=== PATIENT | male | born 1990 | race Hispanic/Latino ===

== ENCOUNTER 2019-10-08 12:05 | Emergency (ER) | payer OTHER ==
[~2019-10-08] VITALS: Ht 188 cm; Wt 158.8 kg
[2019-10-08] MEDS ORDERED: MORPHINE SULFATE INJ 4 MG/ML INJ 1ML IV STA (12:26)
[2019-10-08] MEDS ORDERED: SODIUM CHLORIDE 0.9% 1000ML 1,000 ML IV STA (12:26)
[2019-10-08] MEDS ORDERED: ONDANSETRON HCL INJ 2MG/ML 2ML 2 MG/ML VIAL IV STA (12:26)
[2019-10-08] MEDS ORDERED: PANTOPRAZOLE 40 MG 10ML VIAL IV STA (12:26)
[2019-10-08] MEDS ORDERED: DIATRIZOATE MEGL/DIATRIZOA SOD 30 ML BTL PO ONE (13:21)
[2019-10-08 13:42] LABS: BASOPHILS # (AUTO) 0.1 (0.0-0.1); BASOPHILS % 0.4 % (0.0-1.0); EOSINOPHILS % 0.2 % (0.0-6.0); HEMATOCRIT 45.7 % (38.2-49.6); HEMOGLOBIN 15.7 g/dL (14.0-18.0); LYMPHOCYTES # (AUTO) 3.1 (1.0-3.2); LYMPHOCYTES % 15.7 % (18.0-39.1); MEAN CORPUSCULAR HEMOGLOBIN 31.3 pg (28-32); MEAN CORPUSCULAR HGB CONC 34.4 g/dL (31-35); MEAN CORPUSCULAR VOLUME 91.2 fL (81-99); MONOCYTES # (AUTO) 1.5 (0.2-0.8); MONOCYTES % 7.3 % (4.4-11.3); NEUTROPHILS # (AUTO) 15.1 (2.1-6.9); NEUTROPHILS % 75.5 % (38.7-80.0); PLATELET COUNT 236 x10e3/uL (140-360); RED BLOOD COUNT 5.01 x10e6/uL (4.3-5.7); RED CELL DISTRIBUTION WIDTH 12.2 % (11.7-14.4)
[2019-10-08 13:56] LABS: ALANINE AMINOTRANSFERASE 72 IU/L (0-55); ALBUMIN 4.3 g/dL (3.5-5.0); ALKALINE PHOSPHATASE 61 IU/L (40-150); AMYLASE 51 U/L (25-125); BLOOD UREA NITROGEN 9 mg/dL (7-26); BUN/CREATININE RATIO 9 (6-25); CALCIUM 9.9 mg/dL (8.4-10.2); CARBON DIOXIDE 23 mmol/L (22-29); CHLORIDE 98 mmol/L (98-107); CREATININE, SERUM 1.01 mg/dL (0.72-1.25); EST GLOMERULAR FILTRATION RATE > 60 ML/MIN (60-); GLUCOSE 90 mg/dL (74-118); LIPASE 9 U/L (8-78); SODIUM 134 mmol/L (136-145)
[2019-10-08 15:05] LABS: BILIRUBIN,URINE NEGATIVE (NEGATIVE); CLARITY,URINE SL CLOUDY (CLEAR); COLOR,URINE YELLOW (YELLOW); KETONES,URINE NEGATIVE (NEGATIVE); LEUKOCYTE ESTERASE ,URINE NEGATIVE (NEGATIVE); NITRITE,URINE NEGATIVE (NEGATIVE); PROTEIN,URINE DIPSTICK NEGATIVE (NEGATIVE); URINE UROBILINOGEN 0.2 mg/dL (0.2 - 1)
--- NOTE | 2019-10-08 15:36 | Diagnostic Imaging Report ---
EXAM: CT Abdomen and Pelvis WITH intravenous contrast INDICATION: Abdominal pain COMPARISON: None. TECHNIQUE: Abdomen and pelvis were scanned utilizing a multidetector helical scanner from the lung base to the pubic symphysis after administration of IV contrast. Coronal and sagittal reformations were obtained. Routine protocol was performed. Scan was performed during portal venous phase. IV CONTRAST: 100mL of Isovue 370 ORAL CONTRAST: Gastrografin RADIATION DOSE: Total DLP: 1070.9 mGy*cm Dose modulation, iterative reconstruction, and/or weight based adjustment of the mA/kV was utilized to reduce the radiation dose to as low as reasonably achievable. FINDINGS: LOWER THORAX: Normal. HEPATOBILIARY: Severe diffuse hepatic steatosis. No focal hepatic lesions. No biliary ductal dilatation. The gallbladder appears unremarkable. SPLEEN: No splenomegaly. PANCREAS: No focal masses or ductal dilatation. ADRENALS: No adrenal nodules. KIDNEYS/URETERS: No hydronephrosis, stones, or solid mass lesions. PELVIC ORGANS/BLADDER: Unremarkable. PERITONEUM / RETROPERITONEUM: No free air or fluid. LYMPH NODES: No lymphadenopathy. VESSELS: Unremarkable. GI TRACT: Sigmoid diverticulosis with short segment of thickened sigmoid colon associated with several diverticuli with adjacent pericolonic fat stranding. No extraluminal free air. No associated diverticular abscess. No other abnormal bowel wall thickening or bowel obstruction. Normal appendix. BONES AND SOFT TISSUES: Unremarkable. IMPRESSION: Acute sigmoid diverticulitis. No associated free air or diverticular abscess. Signed by: Aleksandr Roy MD on 10/08/2019 3:33 PM
[2019-10-08] MEDS ORDERED: KETOROLAC TROMETHAMINE 30 MG/ML VIAL IV STA (15:41)
[2019-10-08] MEDS ORDERED: PIPERACILLIN/TAZO 4.5 GM 100 ML IV ONE (15:45)
[2019-10-08] MEDS ORDERED: DICYCLOMINE HCL 20 MG/2 ML VIAL IM ONE (15:45)
[2019-10-08] MEDS ORDERED: SODIUM CHLORIDE 0.9% 50ML 50 ML ONE (18:37)
[2019-10-08] MEDS ORDERED: IOPAMIDOL 370 MG/ML 200 ML INFUS..BTL INJ ONE (18:37)
--- OUTSIDE RECORDS SUMMARY | 2019-10-09 14:05 | XMS REPORT ---
Author Author [facility] Address Unknown Phone Unavailable Care Team Providers Care Grave Digger Name Role Phone Jeff MERINO Unavailable Unavailable Problems This patient has no known problems. Allergies, Adverse Reactions, Alerts This patient has no known allergies or adverse reactions. Medications This patient has no known medications. Results Test Description Test Time Test Comments Text Results Atomic Results Result Comments CT ABDOMEN/PELVIS W 2019-10-08 15:30:00 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 TECHNIQUE: Abdomen and pelvis were scanned utilizing a multidetector helical scanner from the lung base to the pubic symphysis after administration of IV contrast. Coronal and sagittal reformations were obtained. Routine protocol was performed. Scan was performed during portal venous phase. IV CONTRAST: 100mL of Isovue 370 ORAL CONTRAST: Gastrografin RADIATION DOSE: Total DLP: 1070.9 mGy*cm Dose modulation, iterative reconstruction, and/or weight based adjustment of the mA/kV was utilized to reduce the radiation dose to as low as reasonably achievable. FINDINGS: LOWER THORAX: Normal. HEPATOBILIARY: Severe diffuse hepatic steatosis. No focal hepatic lesions. No biliary ductal dilatation. The gallbladder appears unremarkable. SPLEEN: No splenomegaly. PANCREAS: No focal masses or ductal dilatation. ADRENALS: No adrenal nodules. KIDNEYS/URETERS: No hydronephrosis, stones, or solid mass lesions. PELVIC ORGANS/BLADDER: Unremarkable. PERITONEUM / RETROPERITONEUM: No free air or fluid. LYMPH NODES: No lymphadenopathy. VESSELS: Unremarkable. GI TRACT: Sigmoid diverticulosis with short segment of thickened sigmoid colon associated with several diverticuli with adjacent pericolonic fat stranding. No extraluminal free air. No associated diverticular abscess. No other abnormal bowel wall thickening or bowel obstruction. Normal appendix. BONES AND SOFT TISSUES: Unremarkable. IMPRESSION: Acute sigmoid diverticulitis. No associated free air or diverticular abscess. Signed by: Bulmaro Staley MD on 10/08/2019 3:33 PM Dictated By: BULMARO STALEY MD [id number] Transcribed By: PAULA on 10/08/19 1533 COPY TO: CECILIA NOGUEIRA NP
== END 2019-10-08 17:18 | disposition home or self-care (01) ==
LOC: ER 12:05
DX: K57.32 Diverticulitis of large intestine without perforation or abscess without bleeding (principal); E66.9 Obesity, unspecified; Z68.41 Body mass index [BMI] 40.0-44.9, adult
CPT/HCPCS: 36415; 74177; 80053; 81001; 82150; 83690; 85025; 87086; 99284; C9113; J0500; J1885; J2270; J2405; J2543; J7030; Q9967

== ENCOUNTER 2020-05-28 08:46 | Emergency (ER) | payer OTHER ==
[~2020-05-28] VITALS: Ht 188 cm; Wt 158.8 kg
--- OUTSIDE RECORDS SUMMARY | 2020-05-28 09:10 | XMS REPORT | Continuity of Care Document ---
Author Author [facility] Organization [facility] Address [address] [place] [address] [address] [place] [address] Phone Unavailable Care Team Providers Care Plant Science Professor Name Role Phone NO, PCP PCP Unavailable Jeff MERINO Attphyfidelia Unavailable Payers Payer Name Policy Type Policy Number Effective Date Expiration Date Fidelia Zhao Ppo [id number] [facility] Problems This patient has no known problems. Allergies, Adverse Reactions, Alerts This patient has no known allergies or adverse reactions. Medications This patient has no known medications. Procedures Procedure Date / Time Performed Performing Clinician Sourc e Computed tomography of abdomen and pelvis with contrast 2018 00:00:00 CECILIA NOGUEIRA [facility] Encounters Start Date/Time End Date/Time En[facility] Ad[facility] ID Source 2019-10-08 12:05:00 2019-10-08 17:18:00 Departed Emergency Room [address] [facility] [id number] [facility] Results Test Description Test Time Test Comments Results Result Comments Source CT ABDOMEN/PELVIS W 2019-10-08 15:30:00 [facility] [address] [place] [address] Patient Name: GORDY GREGORY JR MR #: [id number] : 1990 Age/Sex: 29/M Req #: [id number] Adm Physician: Ordered by: CECILIA NOGUEIRA SENIOR COMPUTER SPECIALIST Report #: [id number] Location: ER Room/Bed: Procedure: [id number] CT/CT ABDOMEN/PELVIS W Exam Date: Exam Time: REPORT STATUS: Signed EXAM: CT Abdomen and Pelvis WITH intravenous contrast INDICATION: Abdominal pain COMPARISON: None. TECHNIQUE: Abdomen and [...] air or diverticular abscess. Signed by: Bulmaro Roy MD on 10/08/2019 3:33 PM Dictated By: BULMARO ROY MD 153 Transcribed By: PAULA on 10/08/19 1533 COPY TO: CECILIA NOGUEIRA NP Urine Blood 2019-10-08 15:18:00 Test Item Urine Blood (test code = 82807-7) TRACE NEGATIVE [facility] [id number] 15:18:00* Test Item Value Reference Range Interpretation Comments Urine WBC (test code = 5821-4) NONE 0-5 [facility] [id number] 15:18:00* Test Item Value Reference Range Interpretation Comments Urine RBC (test code = 85479-7) NONE 0-5 [facility] Rwvhfeql4904-97-40 15:18:00* Test Item Value Reference Range Interpretation Comments Urine Bacteria (test code = 84729-7) NONE NONE [facility] Epithelial Fmqha6812-84-59 15:18:00 * Test Item Value Reference Range Interpretation Comments Urine Epithelial Cells (test code = 38778-0) NONE NONE [facility] Bfuhc9269-73-56 15:08:00* Test Item Value Reference Range Interpretation Comments Urine Color (test code = 5778-6) YELLOW YELLOW [facility] Atgcikg6062-55-01 15:08:00* Test Item Value Reference Range Interpretation Comments Urine Clarity (test code = 99393-4) SL CLOUDY CLEAR H [facility] Specific Dfgimyd2448-38-25 15:08:00 * Test Item Value Reference Range Interpretation Comments Urine Specific [place] (test code = 5811-5) 1.015 1.010-1.02 5 [facility] [id number] 15:08:00* Test Item Value Reference Range Interpretation Comments Urine pH (test code = 79979-8) 6 5-7 [facility] Leukocyte Hawbctuj6739-65-70 15:08:00* Test Item Value Reference Range Interpretation Comments Urine Leukocyte Esterase (test code = 11530-3) NEGATIVE NEGATIV E [facility] Ahnnagq0234-18-90 15:08:00* Test Item Value Reference Range Interpretation Comments Urine Nitrite (test code = 73707-4) NEGATIVE NEGATIVE [facility] Nnulnuq2366-37-94 15:08:00* Test Item Value Reference Range Interpretation Comments Urine Protein (test code = 67693-8) NEGATIVE NEGATIVE [facility] Glucose (UA)2019-10-08 15:08:00* Test Item Value Reference Range Interpretation Comments Urine Glucose (UA) (test code = 14573-0) NEGATIVE NEGATIVE [facility]rine Mktkaux2272-35-32 15:08:00* Test Item Value Reference Range Interpretation Comments Urine Ketones (test code = 47431-6) NEGATIVE NEGATIVE [facility] Ukvybpjxydib1015-56-33 15:08:00* Test Item Value Reference Range Interpretation Comments Urine Urobilinogen (test code = 76652-5) 0.2 0.2-1 [facility] Xevgpwrxa8608-25-21 15:08:00* Test Item Value Reference Range Interpretation Comments Urine Bilirubin (test code = 1977-8) NEGATIVE NEGATIVE [facility] PasoTotal Jrpkzspve0749-62-26 14:17:00* Test Item Value Reference Range Interpretation Comments Total Bilirubin (test code = 1975-2) 0.6 0.2-1.2 [facility] Mtdif4181-62-75 13:58:00* Test Item Value Reference Range Interpretation Comments Sodium Level (test code = 2951-2) 134 136-145 L [facility] PasoPotassium Ddfyd1804-66-04 13:58:00* Test Item Value Reference Range Interpretation Comments Potassium Level (test code = 2823-3) 4.0 3.5-5.1 [facility] PasoChloride Ezexp1641-94-62 13:58:00* Test Item Value Reference Range Interpretation Comments Chloride Level (test code = 2075-0) 98 98-107 [facility] PasoCarbon Dioxide Omrbs6739-27-02 13:58:00* Test Item Value Reference Range Interpretation Comments Carbon Dioxide Level (test code = 2028-9) 23 22-29 [facility] PasoAnion Dyt3064-61-64 13:58:00* Test Item Value Reference Range Interpretation Comments Anion Gap (test code = 88464-6) 17.0 8-16 H [facility] PasoBlood Urea Mnonnhae1160-47-91 13:58:00* Test Item Value Reference Range Interpretation Comments Blood Urea Nitrogen (test code = 3094-0) 9 7-26 [facility] PasoCreatinine2019-12-19 13:58:00* Test Item Value Reference Range Interpretation Comments Creatinine (test code = 2160-0) 1.01 0.72-1.25 [facility] PasoBUN/Creatinine Mbrmp0505-64-42 13:58:00* Test Item Value Reference Range Interpretation Comments BUN/Creatinine Ratio (test code = 3097-3) 9 6-25 [facility] PasoEstimat Glomerular Filtration Rate 2019-10-08 13:58:00* Test Item Value Reference Range Interpretation Comments Estimat Glomerular Filtration Rate (test code = 094525556) > 60 >60 Ranges were taken from the National Kidney Disease Education Program and the [facility] literature.Reference ranges:60 or greater: Jaoakg13-34 ( for 3 consecutive months): Chronic kidney disease 15 or less: Kidney failureFoundation Surgical Hospital of El PasoGlucose Ffnce6679-87-46 13:58:00* Test Item Value Reference Range Interpretation Comments Glucose Level (test code = DOD8818) 90 74-118 [facility] PasoCalcium Vkfjg1498-37-42 13:58:00* Test Item Value Reference Range Interpretation Comments Calcium Level (test code = 44565-8) 9.9 8.4-10.2 [facility] PasoAspartate Amino Transf (AST/SGOT) 2019-10-08 13:58:00* Test Item Value Reference Range Interpretation Comments Aspartate Amino Transf (AST/SGOT) (test code = Aspartate Amino Transf (AST/SGOT)) 29 5-34 [facility] PasoAlanine Aminotransferase (ALT/SGPT) 2019-10-08 13:58:00* Test Item Value Reference Range Interpretation Comments Alanine Aminotransferase (ALT/SGPT) (test code = 1742-6) 72 0-55 H [facility] PasoTotal Yshtejw1373-32-47 13:58:00* Test Item Value Reference Range Interpretation Comments Total Protein (test code = 2885-2) 8.5 6.5-8.1 H [facility] PasoAlbumin2019-12-19 13:58:00* Test Item Value Reference Range Interpretation Comments Albumin (test code = 1751-7) 4.3 3.5-5.0 [facility] PasoGlobulin2019-12-19 13:58:00* Test Item Value Reference Range Interpretation Comments Globulin (test code = 89236-1) 4.2 2.3-3.5 H [facility] PasoAlbumin/Globulin Ejkkz3846-64-84 13:58:00 * Test Item Value Reference Range Interpretation Comments Albumin/Globulin Ratio (test code = 1759-0) 1.0 0.8-2.0 [facility] PasoAlkaline Kaelvosfhog7060-08-84 13:58:00* Test Item Value Reference Range Interpretation Comments Alkaline Phosphatase (test code = 6768-6) 61 40-150 [facility] PasoAmylase Zzibg8480-00-97 13:58:00* Test Item Value Reference Range Interpretation Comments Amylase Level (test code = 1798-8) 51 25-125 [facility] PasoLipase2019-12-19 13:58:00* Test Item Value Reference Range Interpretation Comments Lipase (test code = 3040-3) 9 8-78 [facility] PasoWhite Blood Ztylh3411-28-58 13:46:00* Test Item Value Reference Range Interpretation Comments White Blood Count (test code = 6690-2) 19.93 4.8-10.8 H [facility] PasoRed Blood Qyjsk7969-77-02 13:46:00* Test Item Value Reference Range Interpretation Comments Red Blood Count (test code = 789-8) 5.01 4.3-5.7 [facility] PasoHemoglobin2019-12-19 13:46:00* Test Item Value Reference Range Interpretation Comments Hemoglobin (test code = 49201-1) 15.7 14.0-18.0 [facility] PasoHematocrit2019-12-19 13:46:00* Test Item Value Reference Range Interpretation Comments Hematocrit (test code = 4544-3) 45.7 38.2-49.6 [facility] PasoMean Corpuscular Frubrk4642-28-06 13:46:00* Test Item Value Reference Range Interpretation Comments Mean Corpuscular Volume (test code = 787-2) 91.2 81-99 [facility] PasoMean Corpuscular Ylinunfvnw7013-55-17 13:46:00* Test Item Value Reference Range Interpretation Comments Mean Corpuscular Hemoglobin (test code = 785-6) 31.3 28-32 [facility] PasoMean Corpuscular Hemoglobin Concent 2019-10-08 13:46:00* Test Item Value Reference Range Interpretation Comments Mean Corpuscular Hemoglobin Concent (test code = 786-4) 34.4 31-35 [facility] PasoRed Cell Distribution Qerxb0808-91-75 13:46:00* Test Item Value Reference Range Interpretation Comments Red Cell Distribution Width (test code = 75055-6) 12.2 11.7 -14.4 [facility] PasoPlatelet Kshvz2281-62-83 13:46:00* Test Item Value Reference Range Interpretation Comments Platelet Count (test code = 777-3) 236 140-360 [facility] PasoNeutrophils (%) (Auto)2019-10-08 13:46:00 * Test Item Value Reference Range Interpretation Comments Neutrophils (%) (Auto) (test code = 04973-2) 75.5 38.7-80.0 [facility] PasoLymphocytes (%) (Auto)2019-10-08 13:46:00 * Test Item Value Reference Range Interpretation Comments Lymphocytes (%) (Auto) (test code = 736-9) 15.7 18.0-39.1 L [facility] PasoMonocytes (%) (Auto)2019-10-08 13:46:00* Test Item Value Reference Range Interpretation Comments Monocytes (%) (Auto) (test code = 5905-5) 7.3 4.4-11.3 [facility] PasoEosinophils (%) (Auto)2019-10-08 13:46:00 * Test Item Value Reference Range Interpretation Comments Eosinophils (%) (Auto) (test code = 713-8) 0.2 0.0-6.0 [facility] PasoBasophils (%) (Auto)2019-10-08 13:46:00* Test Item Value Reference Range Interpretation Comments Basophils (%) (Auto) (test code = 706-2) 0.4 0.0-1.0 [facility] PasoIM GRANULOCYTES %2019-10-08 13:46:00* Test Item Value Reference Range Interpretation Comments IM GRANULOCYTES % (test code = IM GRANULOCYTES %) 0.9 0.0- 1.0 [facility] PasoNeutrophils # (Auto)2019-10-08 13:46:00* Test Item Value Reference Range Interpretation Comments Neutrophils # (Auto) (test code = 751-8) 15.1 2.1-6.9 H [facility] PasoLymphocytes # (Auto)2019-10-08 13:46:00* Test Item Value Reference Range Interpretation Comments Lymphocytes # (Auto) (test code = 35462-4) 3.1 1.0-3.2 [facility] PasoMonocytes # (Auto)2019-10-08 13:46:00* Test Item Value Reference Range Interpretation Comments Monocytes # (Auto) (test code = 742-7) 1.5 0.2-0.8 H [facility] PasoEosinophils # (Auto)2019-10-08 13:46:00* Test Item Value Reference Range Interpretation Comments Eosinophils # (Auto) (test code = 711-2) 0.0 0.0-0.4 [facility] PasoBasophils # (Auto)2019-10-08 13:46:00* Test Item Value Reference Range Interpretation Comments Basophils # (Auto) (test code = 704-7) 0.1 0.0-0.1 [facility] PasoAbsolute Immature Granulocyte (auto 2019-10-08 13:46:00* Test Item Value Reference Range Interpretation Comments Absolute Immature Granulocyte (auto (da t code = Absolute Immature Granulocyte (auto) 0.17 0-0.1 H [facility]
[2020-05-28] MEDS ORDERED: KETOROLAC TROMETHAMINE 30 MG/ML VIAL IV ONE (09:16)
[2020-05-28] MEDS ORDERED: MORPHINE SULFATE 2 MG/ML SYR 1ML IV ONE (09:16)
[2020-05-28] MEDS ORDERED: ONDANSETRON HCL INJ 2MG/ML 2ML 2 MG/ML VIAL IV ONE (09:16)
[2020-05-28 09:33] LABS: BASOPHILS # (AUTO) 0.1 (0.0-0.1); BASOPHILS % 0.6 % (0.0-1.0); EOSINOPHILS # (AUTO) 0.2 (0.0-0.4); EOSINOPHILS % 1.4 % (0.0-6.0); HEMATOCRIT 44.9 % (38.2-49.6); HEMOGLOBIN 14.7 g/dL (14.0-18.0); LYMPHOCYTES # (AUTO) 3.8 (1.0-3.2); LYMPHOCYTES % 34.1 % (18.0-39.1); MEAN CORPUSCULAR HEMOGLOBIN 30.9 pg (28-32); MEAN CORPUSCULAR HGB CONC 32.7 g/dL (31-35); MEAN CORPUSCULAR VOLUME 94.5 fL (81-99); MONOCYTES # (AUTO) 0.8 (0.2-0.8); MONOCYTES % 7.6 % (4.4-11.3); NEUTROPHILS # (AUTO) 6.1 (2.1-6.9); NEUTROPHILS % 55.2 % (38.7-80.0); PLATELET COUNT 224 x10e3/uL (140-360); RED BLOOD COUNT 4.75 x10e6/uL (4.3-5.7); RED CELL DISTRIBUTION WIDTH 12.3 % (11.7-14.4)
[2020-05-28 09:44] LABS: INR 0.97; PROTHROMBIN TIME 13.4 seconds (11.9-14.5)
[2020-05-28 09:45] LABS: PARTIAL THROMBOPLASTIN TIME 32.8 seconds (23.8-35.5)
[2020-05-28 09:56] LABS: ALANINE AMINOTRANSFERASE 76 IU/L (0-55); ALBUMIN 4.2 g/dL (3.5-5.0); ALBUMIN/GLOBULIN RATIO 1.1 (0.8-2.0); ALKALINE PHOSPHATASE 53 IU/L (40-150); ANION GAP 14.3 mmol/L (8-16); BLOOD UREA NITROGEN 9 mg/dL (7-26); BUN/CREATININE RATIO 8 (6-25); CALCIUM 9.5 mg/dL (8.4-10.2); CARBON DIOXIDE 27 mmol/L (22-29); CHLORIDE 105 mmol/L (98-107); CREATININE, SERUM 1.11 mg/dL (0.72-1.25); EST GLOMERULAR FILTRATION RATE > 60 ML/MIN (60-); GLUCOSE 98 mg/dL (74-118); POTASSIUM 4.3 mmol/L (3.5-5.1); SODIUM 142 mmol/L (136-145)
[2020-05-28 10:05] LABS: CLARITY,URINE HAZY (CLEAR); COLOR,URINE YELLOW (YELLOW); LEUKOCYTE ESTERASE ,URINE NEGATIVE (NEGATIVE); NITRITE,URINE NEGATIVE (NEGATIVE)
[2020-05-28 10:06] LABS: BILIRUBIN,URINE NEGATIVE (NEGATIVE); KETONES,URINE NEGATIVE (NEGATIVE); PROTEIN,URINE DIPSTICK 1+ (NEGATIVE); URINE UROBILINOGEN 0.2 mg/dL (0.2 - 1)
[2020-05-28 10:14] LABS: BACTERIA,URINE FEW /HPF; EPITHELIAL CELLS,URINE FEW /LPF; RBC,URINE >50 /HPF (0-5); WBC,URINE (MAN) 0-5 /HPF (0-5)
--- NOTE | 2020-05-28 11:01 | Diagnostic Imaging Report ---
EXAM: CT Abdomen and Pelvis WITHOUT contrast INDICATION: Left flank pain reading to the testicle. Diverticulitis. Kidney stones. COMPARISON: 10/08/2019. TECHNIQUE: Abdomen and pelvis were scanned utilizing a multidetector helical scanner from the lung base to the pubic symphysis without administration of IV contrast. Absence of intravenous contrast decreases sensitivity for detection of focal lesions and vascular pathology. Coronal and sagittal reformations were obtained. Routine protocol was performed. IV CONTRAST: None. ORAL CONTRAST: Water RADIATION DOSE: Total DLP: 1686.97 mGy*cm Estimated effective dose: (DLP x 0.015 x size factor) mSv COMPLICATIONS: None FINDINGS: LINES and TUBES: None. LOWER THORAX: Unremarkable HEPATOBILIARY: The liver is markedly diffuse hypodense compared to the spleen, consistent with diffuse hepatic diffuse hepatic steatosis. Focal fatty sparing about the gallbladder fossa. No focal hepatic lesions. No biliary ductal dilation. GALLBLADDER: No radio-opaque stones or sludge. No wall thickening. SPLEEN: No splenomegaly. PANCREAS: No focal masses or ductal dilatation. ADRENALS: No adrenal nodules KIDNEYS/URETERS: No low right-sided hydronephrosis. 4 mm obstructing calculus calculus in the proximal left ureter resulting in mild left pelvocaliectasis. GI TRACT: No abnormal distention, wall thickening, or evidence of bowel obstruction. There are diverticula within the colon without evidence of diverticulitis. Appendix is normal. PELVIC ORGANS/BLADDER: Unremarkable. LYMPH NODES: No lymphadenopathy. VESSELS: Unremarkable. PERITONEUM / RETROPERITONEUM: No free air or fluid. BONES: Multilevel Schmorl nodes. SOFT TISSUES: Unremarkable. IMPRESSION: 1. 4 mm obstructing calculus calculus in the proximal left ureter resulting in mild left pelvocaliectasis. 2. Hepatic steatosis. 3. Mild sigmoid diverticulosis without diverticulitis. Diverticulitis present on the prior examination has resolved. Signed by: Dr. Norman Jeff M.D. on 05/28/2020 10:57 AM
--- NOTE | 2020-05-28 11:17 | Emergency Department Note ---
History of Present Illnes History of Present Illness Chief Complaint: Abdominal Complaints History of Present Illness This is a 29 year old male c/o left flank pain radiating down to testicles x 1.5 weeks worse this am, denies dysuria/hematuria dx with diverticulitis sep 2019. 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 Any updates have been documented here. Past Medical History Recent Fever: No Clinical Suspicion of Infectio: No New/Unexplained Change in Ment: No Other Medical History: OBESITY DIVERTICULITIS Past Surgical History: None Social History Smoking Cessation: Never Smoker Counseling Performed: No Alcohol Use: None Any Illegal Drug Use: No TB Exposure/Symptoms: No Physically hurt or threatened: No Family History Family history of heart diseas: No Other Any Pre-Existing Lines (PICC,: No Review of Systems Review of Systems Constitutional: Reports no symptoms EENTM: Reports no symptoms Cardiovascular: Reports no symptoms Respiratory: Reports no symptoms Gastrointestinal: Reports as per HPI Genitourinary: Reports no symptoms Musculoskeletal: Reports no symptoms Integumentary: Reports no symptoms Neurological: Reports no symptoms Psychological: Reports no symptoms Endocrine: Reports no symptoms Hematological/Lymphatic: Reports no symptoms Physical Exam Related Data Allergies: Coded Allergies: No Known Allergies (Unverified , 10/08/19) Triage Vital Signs Vital Signs Date Time Temp Pulse Resp B/P (MAP) Pulse Ox O2 Delivery O2 Flow Rate FiO2 05/28/20 08:56 98.8 78 18 138/68 100 Room Air Vital signs reviewed: Yes Physical Exam CONSTITUTIONAL Constitutional: Present well-developed, Present well-nourished HENT HENT: Present normocephalic, Present atraumatic, Present oropharynx clear/moist, Present nose normal HENT L/R: Present left ext ear normal, Present right ext ear normal EYES Eyes: Reports PERRL, Reports conjunctivae normal NECK Neck: Present ROM normal PULMONARY Pulmonary: Present effort normal, Present breath sounds normal CARDIOVASCULAR Cardiovascular: Present regular rhythm, Present heart sounds normal, Present capillary refill normal, Present normal rate GASTROINTESTINAL Abdominal: Present soft, Present bowel sounds normal, Present tender (MILD LEFT SIDED TENDERNESS, NO CVAT); Absent guarding, Absent rebound, Absent left CVA tenderness, Absent right CVA tenderness GENITOURINARY Genitourinary: Present exam deferred SKIN Skin: Present warm, Present dry MUSCULOSKELETAL Musculoskeletal: Present ROM normal NEUROLOGICAL Neurological: Present alert, Present oriented x 3, Present no gross motor or sensory deficits PSYCHOLOGICAL Psychological: Present mood/affect normal, Present judgement normal Results Laboratory Result Diagram: 05/28/20 0910 05/28/20 0910 Laboratory Laboratory Tests Test 05/28/20 09:51 05/28/20 09:10 Urine Color Yellow (YELLOW) Urine Clarity Hazy (CLEAR) Urine pH 6 (5 - 7) Urine Specific [place] 1.025 (1.010-1.025) Urine Protein 1+ (NEGATIVE) Urine Glucose (UA) Negative (NEGATIVE) Urine Ketones Negative (NEGATIVE) Urine Blood Large (NEGATIVE) Urine Nitrite Negative (NEGATIVE) Urine Bilirubin Negative (NEGATIVE) Urine Urobilinogen 0.2 mg/dL (0.2 - 1) Urine Leukocyte Esterase Negative (NEGATIVE) Urine RBC >50 /HPF (0-5) Urine WBC 0-5 /HPF (0-5) Urine Epithelial Cells Few /LPF (NONE) Urine Bacteria Few /HPF (NONE) White Blood Count 11.11 x10e3/uL (4.8-10.8) Red Blood Count 4.75 x10e6/uL (4.3-5.7) Hemoglobin 14.7 g/dL (14.0-18.0) Hematocrit 44.9 % (38.2-49.6) Mean Corpuscular Volume 94.5 fL (81-99) Mean Corpuscular Hemoglobin 30.9 pg (28-32) Mean Corpuscular Hemoglobin Concent 32.7 g/dL (31-35) Red Cell Distribution Width 12.3 % (11.7-14.4) Platelet Count 224 x10e3/uL (140-360) Neutrophils (%) (Auto) 55.2 % (38.7-80.0) Lymphocytes (%) (Auto) 34.1 % (18.0-39.1) Monocytes (%) (Auto) 7.6 % (4.4-11.3) Eosinophils (%) (Auto) 1.4 % (0.0-6.0) Basophils (%) (Auto) 0.6 % (0.0-1.0) Neutrophils # (Auto) 6.1 (2.1-6.9) Lymphocytes # (Auto) 3.8 (1.0-3.2) Monocytes # (Auto) 0.8 (0.2-0.8) Eosinophils # (Auto) 0.2 (0.0-0.4) Basophils # (Auto) 0.1 (0.0-0.1) Absolute Immature Granulocyte (auto 0.12 x10e3/uL (0-0.1) Prothrombin Time 13.4 seconds (11.9-14.5) Prothromb Time International Ratio 0.97 Activated Partial Thromboplast Time 32.8 seconds (23.8-35.5) Sodium Level 142 mmol/L (136-145) Potassium Level 4.3 mmol/L (3.5-5.1) Chloride Level 105 mmol/L (98-107) Carbon Dioxide Level 27 mmol/L (22-29) Anion Gap 14.3 mmol/L (8-16) Blood Urea Nitrogen 9 mg/dL (7-26) Creatinine 1.11 mg/dL (0.72-1.25) Estimat Glomerular Filtration Rate > 60 ML/MIN (60-) BUN/Creatinine Ratio 8 (6-25) Glucose Level 98 mg/dL (74-118) Calcium Level 9.5 mg/dL (8.4-10.2) Total Bilirubin 0.3 mg/dL (0.2-1.2) Aspartate Amino Transf (AST/SGOT) 35 IU/L (5-34) Alanine Aminotransferase (ALT/SGPT) 76 IU/L (0-55) Alkaline Phosphatase 53 IU/L (40-150) Total Protein 7.9 g/dL (6.5-8.1) Albumin 4.2 g/dL (3.5-5.0) Globulin 3.7 g/dL (2.3-3.5) Albumin/Globulin Ratio 1.1 (0.8-2.0) Lab results reviewed: Yes Imaging Imaging results reviewed: Yes Impressions Procedure: [id number] CT/CT ABDOMEN/PELVIS WO Exam Date: 05/28/20 Exam Time: 0915 REPORT STATUS: Signed EXAM: CT Abdomen and Pelvis WITHOUT contrast INDICATION: Left flank pain reading to the testicle. Diverticulitis. Kidney stones. COMPARISON: 10/08/2019. TECHNIQUE: Abdomen and pelvis were scanned utilizing a multidetector helical scanner from the lung base to the pubic symphysis without administration of IV contrast. Absence of intravenous contrast decreases sensitivity for detection of focal lesions and vascular pathology. Coronal and sagittal reformations were obtained. Routine protocol was performed. IV CONTRAST: None. ORAL CONTRAST: Water RADIATION DOSE: Total DLP: 1686.97 mGy*cm Estimated effective dose: (DLP x 0.015 x size factor) mSv COMPLICATIONS: None FINDINGS: LINES and TUBES: None. LOWER THORAX: Unremarkable HEPATOBILIARY: The liver is markedly diffuse hypodense compared to the spleen, consistent with diffuse hepatic diffuse hepatic steatosis. Focal fatty sparing about the gallbladder fossa. No focal hepatic lesions. No biliary ductal dilation. GALLBLADDER: No radio-opaque stones or sludge. No wall thickening. SPLEEN: No splenomegaly. PANCREAS: No focal masses or ductal dilatation. ADRENALS: No adrenal nodules KIDNEYS/URETERS: No low right-sided hydronephrosis. 4 mm obstructing calculus calculus in the proximal left ureter resulting in mild left pelvocaliectasis. GI TRACT: No abnormal distention, wall thickening, or evidence of bowel obstruction. There are diverticula within the colon without evidence of diverticulitis. Appendix is normal. PELVIC ORGANS/BLADDER: Unremarkable. LYMPH NODES: No lymphadenopathy. VESSELS: Unremarkable. PERITONEUM / RETROPERITONEUM: No free air or fluid. BONES: Multilevel Schmorl nodes. SOFT TISSUES: Unremarkable. IMPRESSION: 1. 4 mm obstructing calculus calculus in the proximal left ureter resulting in mild left pelvocaliectasis. 2. Hepatic steatosis. 3. Mild sigmoid diverticulosis without diverticulitis. Diverticulitis present on the prior examination has resolved. Signed by: Dr. Norman Jeff M.D. on 05/28/2020 10:57 AM Assessment & Plan Medical Decision Making MDM PT WITH H/O DIVERTICULITIS, C/O LEFT ABD PAIN RADIATING TO LEFT FLANK AND GROIN, MINIMALLY TENDER ON EXAM - CBC, CHEM'S, UA, CT ABD/PELVIS - R/O URETEROLIT HIASIS, DIVERTICULITIS, UTI/PYELONEPHRITIS, RENAL INSUFF, ELECTROLYTE ABNL Reassessment Reassessment MUCH IMPROVED. DC HOME WITH FLOMAX, TYL #3, TORADOL, PUSH PO FLUIDS, STRAIN ALL URINE, F/U PCP AND UROLOGY Assessment & Plan Final Impression: (1) Ureterolithiasis Depart Disposition: HOME, SELF-CARE Last Vital Signs Date Time Temp Pulse Resp B/P (MAP) Pulse Ox O2 Delivery O2 Flow Rate FiO2 05/28/20 08:56 98.8 78 18 138/68 100 Room Air Medications in the ED Morphine Sulfate 4 mg ONCE ONCE IV Last administered on 05/28/20at 09:57; Admin Dose 4 MG; Start 05/28/20 at 09:16; Stop 05/28/20 at 09:17 Ondansetron HCl 4 mg ONCE ONCE IV Last administered on 05/28/20at 09:57; Admin Dose 4 MG; Start 05/28/20 at 09:16; Stop 05/28/20 at 09:17 Ketorolac Tromethamine 30 mg ONCE ONCE IV Last administered on 05/28/20at 09:57; Admin Dose 30 MG; Start 05/28/20 at 09:16; Stop 05/28/20 at 09:17 JR GARCES MD May 28, 2020 11:17
== END 2020-05-28 12:00 | disposition home or self-care (01) ==
LOC: ER 09:00
DX: N20.1 Calculus of ureter (principal); R10.32 Left lower quadrant pain; M54.5 Low back pain; E66.9 Obesity, unspecified; Z87.19 Personal history of other diseases of the digestive system
CPT/HCPCS: 36415; 74176; 80053; 81001; 85025; 85610; 85730; 87086; 99284; J1885; J2270; J2405

== ENCOUNTER 2022-11-10 19:58 | Emergency (ER) | payer OTHER ==
[~2022-11-10] VITALS: Ht 188 cm; Wt 158.8 kg
[2022-11-10] MEDS ORDERED: ONDANSETRON HCL INJ 2MG/ML 2ML 2 MG/ML VIAL IV STA (20:00)
[2022-11-10] MEDS ORDERED: SODIUM CHLORIDE 0.9% 1000ML 1,000 ML IV STA (20:00)
[2022-11-10] MEDS ORDERED: Morphine 4mg INJECTION 4 MG/ML INJ IV STA (20:00)
[2022-11-10] MEDS ORDERED: ACETAMINOPHEN 325 MG TAB PO STA (20:00)
[2022-11-10 20:13] LABS: BASOPHILS # (AUTO) 0.1 (0.0-0.1); BASOPHILS % 0.6 % (0.0-1.0); EOSINOPHILS # (AUTO) 0.2 (0.0-0.4); EOSINOPHILS % 1.2 % (0.0-6.0); HEMATOCRIT 47.9 % (38.2-49.6); HEMOGLOBIN 15.6 g/dL (14.0-18.0); LYMPHOCYTES # (AUTO) 5.3 (1.0-3.2); LYMPHOCYTES % 37.9 % (18.0-39.1); MEAN CORPUSCULAR HEMOGLOBIN 31.8 pg (28-32); MEAN CORPUSCULAR HGB CONC 32.6 g/dL (31-35); MEAN CORPUSCULAR VOLUME 97.8 fL (81-99); MONOCYTES % 6.9 % (4.4-11.3); NEUTROPHILS # (AUTO) 7.4 (2.1-6.9); NEUTROPHILS % 52.8 % (38.7-80.0); PLATELET COUNT 252 x10e3/uL (140-360); RED CELL DISTRIBUTION WIDTH 11.9 % (11.7-14.4)
[2022-11-10 20:19] LABS: CLARITY,URINE CLEAR (CLEAR); COLOR,URINE YELLOW (YELLOW); KETONES,URINE NEGATIVE (NEGATIVE); LEUKOCYTE ESTERASE ,URINE NEGATIVE (NEGATIVE); NITRITE,URINE NEGATIVE (NEGATIVE); PROTEIN,URINE DIPSTICK NEGATIVE (NEGATIVE); URINE UROBILINOGEN 0.2 mg/dL (0.2 - 1)
[2022-11-10 20:32] LABS: RBC,URINE 0-5 /HPF (0-5)
[2022-11-10 20:33] LABS: BACTERIA,URINE FEW /HPF
[2022-11-10 20:36] LABS: ALBUMIN 4.6 g/dL (3.5-5.0); ALBUMIN/GLOBULIN RATIO 1.1 (0.8-2.0); ANION GAP 18.2 mmol/L (8-16); CALCIUM 9.7 mg/dL (8.4-10.2); CREATININE, SERUM 1.16 mg/dL (0.72-1.25); POTASSIUM 4.2 mmol/L (3.5-5.1)
[2022-11-10] MEDS ORDERED: IOPAMIDOL 370 MG/ML 100 ML INFUS..BTL INJ ONE (20:55)
[2022-11-10] MEDS ORDERED: ULTRAM 50MG50 MG PO (22:40)
[2022-11-10] MEDS ORDERED: ONDANSETRON ODT4 MG PO (22:40)
[2022-11-10] MEDS ORDERED: AUGMENTIN 500-1 EACH PO (22:40)
[2022-11-10 22:45] VITALS: BP 103/74
== END 2022-11-10 22:51 | disposition home or self-care (01) ==
LOC: ER 20:03
DX: R10.32 Left lower quadrant pain (principal); K63.89 Other specified diseases of intestine; E66.9 Obesity, unspecified; Z87.19 Personal history of other diseases of the digestive system
CPT/HCPCS: 36415; 74177; 80053; 81001; 83690; 85025; 99284; J2270; J2405; J7030; Q9967

== ENCOUNTER 2025-04-07 14:59 | Emergency (ER) | payer OTHER ==
[~2025-04-07] VITALS: Ht 188 cm; Wt 158.8 kg
[~2025-04-07 14:59] MED LIST: AUGMENTIN 500-1 EACH PO; ONDANSETRON ODT4 MG PO; ULTRAM 50MG50 MG PO
[2025-04-07 15:30] VITALS: TEMP 98.4
[2025-04-07 16:02] LABS: BASOPHILS % 0.3 % (0.0-1.0); EOSINOPHILS # (AUTO) 0.1 (0.0-0.4); EOSINOPHILS % 0.5 % (0.0-6.0); HEMATOCRIT 43.8 % (38.2-49.6); HEMOGLOBIN 14.9 g/dL (14.0-18.0); LYMPHOCYTES % 18.9 % (18.0-39.1); MEAN CORPUSCULAR HEMOGLOBIN 31.6 pg (28-32); MEAN CORPUSCULAR VOLUME 92.8 fL (81-99); MONOCYTES # (AUTO) 1.4 (0.2-0.8); MONOCYTES % 8.5 % (4.4-11.3); NEUTROPHILS # (AUTO) 11.4 (2.1-6.9); NEUTROPHILS % 71.4 % (38.7-80.0); PLATELET COUNT 242 x10e3/uL (140-360); RED BLOOD COUNT 4.72 x10e6/uL (4.3-5.7); RED CELL DISTRIBUTION WIDTH 12.5 % (11.7-14.4); WHITE BLOOD COUNT 15.96 x10e3/uL (4.8-10.8)
[2025-04-07 16:30] LABS: ALBUMIN 4.4 g/dL (3.5-5.0); ANION GAP 16.6 mmol/L (8-16); BILIRUBIN,TOTAL 1.7 mg/dL (0.2-1.2); CALCIUM 9.3 mg/dL (8.4-10.2); CREATININE, SERUM 1.1 mg/dL (0.72-1.25); POTASSIUM 3.6 mmol/L (3.5-5.1); TOTAL PROTEIN 8.7 g/dL (6.5-8.1)
[2025-04-07] MEDS ORDERED: IOPAMIDOL 370 MG/ML 100 ML INFUS..BTL INJ ONE (16:41)
[2025-04-07] MEDS: KETOROLAC TROMETHAMINE 30 MG/ML VIAL IV STA (17:02)
[2025-04-07 17:22] VITALS: PULSE 80; RESP 18; O2SAT 98
[2025-04-07] MEDS ORDERED: CELEBREX100 MG PO (17:41)
[2025-04-07] MEDS ORDERED: METRONIDAZOLE500 MG PO (17:41)
[2025-04-07] MEDS ORDERED: BACTRIM DS TAB1 EACH PO (17:41)
[2025-04-07] MEDS: TRIMETHOPRIM/SULFAMETHOXAZOLE 160-800 MG TAB PO ONE (18:08)
[2025-04-07] MEDS: METRONIDAZOLE 500 MG TAB PO ONE (18:08)
== END 2025-04-07 18:09 | disposition home or self-care (01) ==
LOC: ER 15:40
DX: R10.9 Unspecified abdominal pain (principal); K57.32 Diverticulitis of large intestine without perforation or abscess without bleeding; K76.0 Fatty (change of) liver, not elsewhere classified; E66.9 Obesity, unspecified
CPT/HCPCS: 36415; 74177; 80053; 85025; 99283; J1885; Q9967